=== PATIENT | female | born 1970 | race Caucasian/White ===

== ENCOUNTER 2019-08-14 14:06 | Inpatient (IN) | payer BC, OTHER ==
[2019-08-14] VITALS (14 sets, daily range): BP systolic 73–125; BP diastolic 30–70
[~2019-08-14] VITALS: Ht 162.6 cm; Wt 90.7 kg
[2019-08-14 15:00] LABS: MCV 106.6 fL (80.0-100.0); PLATELET COUNT 116 thou/uL (150-400); RBC 1.27 mil/uL (4.20-5.00); RDW 22.5 % (10.5-14.5); WBC 16.5 thou/uL (4.0-11.0)
[2019-08-14 15:03] LABS: HEMATOCRIT 13.5 % (37.0-47.0); HEMOGLOBIN 4.2 gm/dL (12.0-15.0)
[2019-08-14 15:12] LABS: CALCIUM 8.2 mg/dL (8.5-10.1); CREATININE 2.2 mg/dL (0.6-1.0); POTASSIUM 4.1 mmol/L (3.5-5.1)
[2019-08-14 15:16] LABS: APTT 38.8 Seconds (24.5-32.8); INR 2.4; PROTIME 25.1 Seconds (9.3-11.4)
[2019-08-14 15:23] LABS: ALBUMIN 1.2 g/dL (3.4-5.0); DIRECT BILIRUBIN 6.1 mg/dL (<0.1-0.2); TOTAL BILIRUBIN 8.9 mg/dL (<0.1-1.0); TOTAL PROTEIN 6.1 g/dL (6.4-8.2); TROPONIN-I 0.34 ng/mL (<0.06)
[2019-08-14 15:25] LABS: ABSOLUTE NEUTROPHILS 14.5 thou/uL (1.4-8.2); ANISOCYTOSIS 3+; MACROCYTES 2+; METAMYELOCYTES 1 %; NUCLEATED RBCS 1 /100WBC; PLATELET ESTIMATE SLIGHTLY DECREASED
[2019-08-14 15:26] LABS: POLYCHROMASIA 1+
--- NOTE | 2019-08-14 19:19 | NUR ---
UPDATED DAUGHTER VIA PHONE ON PLAN OF CARE, DAUGHTER GIVEN ICU CONTACT NUMBER.
--- NOTE | 2019-08-14 19:38 | NUR ---
VASCULAR ACCESS CONSULTED FOR CVAD OR PICC LINE. GFR LOW 24 BUT PT UNABLE TO LAY FLAT DUE TO DYSPNEA AND NAUSEA. PT'S LABS,MEDS,HISTURY,ORDER AND CONSENT VERIFIED. DISCUSSED BENEFITS AND RISK OF PICC WITH PT,VERBALIZED UNDERSTANDING. UTE BASILIC WAS WIDELY PATENT WITH USG. PT WAS VERY FIDGIDY DURING INSERTION. TL POWER PICC TRIMMED TO 38CM INSERTED TO 2CM EXTERNAL. STAT CXR ORDERED. PT HAD LARGE EMESIS OF BRIGHT RED BLOOD AND CLOTS AFTER PROCEDURE COMPLETED.
--- NOTE | 2019-08-14 19:48 | NUR ---
CXR CONFIRMED PICC PLACEMENT. RELEASED FOR IMMEDIATE USE PER PROTOCOL TO LEONARDO PICKARD
[2019-08-14 19:56] LABS: HEMOGLOBIN 5.4 gm/dL (12.0-15.0)
[2019-08-14 19:57] LABS: HEMATOCRIT 16.8 % (37.0-47.0)
--- NOTE | 2019-08-14 21:52 | NUR ---
Pt transferred to GI lab for EDG, consent was signed, third unit of PRBC's was initiated with BRANDYN RN. Verbal consent was heard when pt was asked about intubation for procedure, she tearfully agreed. Pt will return on the vebt, RT notified, vent is in the room. Will continue to monitor.
[2019-08-15] VITALS (56 sets, daily range): BP systolic 75–112; BP diastolic 37–61
[2019-08-15 01:22] LABS: HEMATOCRIT 17.5 % (37.0-47.0); HEMOGLOBIN 5.9 gm/dL (12.0-15.0)
--- NOTE | 2019-08-15 06:12 | NUR ---
When pt returned from GI lab, intubated, restless and reaching for the ETT, BUE soft wrist restraints were initiated, Reflesher was notified. Pt was started on propofol, currently infusing at 46 mcg, with good effect, have been able to titrate the levophed down to 15 mcg's, MAP's have been > 60 mmHg throughout the night. Pt is resting comfortably at this time, she is now SR in the 70's to 80's, (she had been tachycardic at the start of the shift, 110's). After a bath, pt was re-weighed and the propofol was adjusted. The bed is in the low/locked position, the siderails are up x 3, and the bed alarm is set. SCD's were not placed due to deep discolored bruising to the right lower extremities, she has 2-3 edema also noted. Her PT/INR are elevated as well. Pt is slowly progressing towards her POC goals.
[2019-08-15 08:49] LABS: MCHC 34.4 g/dL (28.0-37.0); RDW 15.4 % (10.5-14.5); WBC 16.5 thou/uL (4.0-11.0)
--- NOTE | 2019-08-15 08:54 | NUR ---
Assumed care at 0700. Sedation vacation performed at 0830. PT did not follow commands however she attempted to open her eyes to voice and had purposeful movement and was noted to bite down on the ET tube. Propofol was titrated down to 30 mcs with light sedation noted on her RASS score. Levophed gtt was titrated down to 10 mcs to keep MAP above 60. Labs were drawn per Dr. Soto orders. Linda Chamorro called at 0850 and stated she was PT's step-mother. She did not have passcode so RN informed her of HIPAA policy and encouraged her to speak with other family members for an update. High fall risk precautions are in place. RN will continue to monitor.
[2019-08-15 08:59] LABS: HEMATOCRIT 18.6 % (37.0-47.0); HEMOGLOBIN 6.4 gm/dL (12.0-15.0); MCV 93.1 fL (80.0-100.0)
[2019-08-15 09:03] LABS: CALCIUM 7.8 mg/dL (8.5-10.1); CREATININE 2.6 mg/dL (0.6-1.0)
--- NOTE | 2019-08-15 11:29 | NUR ---
Critical lab results called to NEERAJ Tao at 0857 as follows: Hgb 6.4, Hct 18.6, and MCV 93.1. Dr. Lopez was paged at 0901 and again at 0920 to relay critical results. Dr. Lopez returned page at 0929. He verbalized understanding of critical results and 1 unit RBC was ordered. RN also asked provider if PT needed to be on covid-19 precautions as there was no order placed or indications. Provider clarified that PT does not need any isolation precautions at this time. RN verbalized understanding. Will continue to monitor.
--- NOTE | 2019-08-15 13:47 | NUR ---
At 1330 RN spoke with Demarcus Tao on phone. He was given passcode and update on PT condition as he is the only point of contact listed on PT's medical record. Demarcus requested to speak with Dr. Lopez in regards to PT's prognosis. Provider was made aware at 1345. Demarcus stated he would give passcode to his daughter and either him or his daughter will be made point of contact for PT. RN verbalized understanding. Will continue to monitor.
--- NOTE | 2019-08-15 14:17 | NUR ---
Chart reviewed and discussed with the care team. Pt remains in ICU on a vent with pressure support. Hgb 6.4 and getting another unit of blood. Nursing reports mutliple family members calling to get info but needing to clarify a spokesperson. The ER notes that the pt's dtr was updated and given the code. The pt's face sheet information appears to be very old listing a spouse. Nursing spoke with Demarcus Tao and he notes they have been seperated for many years and he will have their dtr call back with her information. The pt reported to ER staff and GI that she lives alone in an apt. She left her boyfriend a while back and has been living on her own and trying to slowly decrease her ethol use. Her primary support is her adult children, Dtr and Son. Pt has a long hx of heavy ethol use and limited medical care. She does not have a pcp or GI physician but has gone to [facility] in the past. She has health insurance in place, believed to be an individual plan. UR notes that our facility is out of network with her insurance plan with no out of network benefits. They are willing to cover her emergency and ICU care but she may need to transfer to an in network hospital once she is more stable and off the vent. In network facilities are [facility], , [place], [facility] and [place]. Will await contact info for the pt's dtr or try to visit with the pt once she is able to be extubated.
[2019-08-15 15:22] LABS: HEMATOCRIT 23.3 % (37.0-47.0); MCH 31.6 pg (26.0-34.0); MCHC 34.3 g/dL (28.0-37.0); MCV 92.1 fL (80.0-100.0); RBC 2.52 mil/uL (4.20-5.00); RDW 15.3 % (10.5-14.5); WBC 16.4 thou/uL (4.0-11.0)
[2019-08-15 15:24] LABS: URINE BILIRUBIN 2+ (Negative); URINE BLOOD 1+ (Negative); URINE CLARITY SL CLOUDY; URINE COLOR YELLOW; URINE GLUCOSE-RANDOM* NEGATIVE (Negative); URINE KETONES TRACE (Negative); URINE LEUKOCYTES-REFLEX NEGATIVE (Negative); URINE NITRITE-REFLEX NEGATIVE (Negative); URINE PROTEIN (DIPSTICK) NEGATIVE (Negative); URINE SPECIFIC GRAVITY 1.025 (1.005-1.035)
[2019-08-15 15:28] LABS: ICTOTEST (BILI CONFIRMATORY) Positive (Negative)
[2019-08-15 15:56] LABS: BACTERIA-REFLEX None Seen /HPF (None Seen); CRYSTALS None Seen /LPF (None Seen); SQUAMOUS 0-3 Few /LPF (0-3); URINE RBC None Seen /HPF (0-2); URINE WBC-REFLEX None Seen /HPF (0-5)
[2019-08-15 16:15] LABS: CALCIUM 7.5 mg/dL (8.5-10.1); CREATININE 2.6 mg/dL (0.6-1.0); MAGNESIUM 1.7 mg/dL (1.8-2.4); POTASSIUM 3.4 mmol/L (3.5-5.1)
[2019-08-16] VITALS (49 sets, daily range): BP systolic 85–132; BP diastolic 42–66
[2019-08-16 00:59] LABS: URINE BILIRUBIN 2+ (Negative); URINE BLOOD TRACE (Negative); URINE CLARITY CLEAR; URINE COLOR YELLOW; URINE GLUCOSE-RANDOM* NEGATIVE (Negative); URINE KETONES NEGATIVE (Negative); URINE LEUKOCYTES 1+ (Negative); URINE NITRITE NEGATIVE (Negative); URINE PROTEIN (DIPSTICK) NEGATIVE (Negative)
[2019-08-16 01:19] LABS: BACTERIA 1-9 Few /HPF (None Seen); CASTS None Seen /LPF (None Seen); MUCUS 0-3 Light strn/LPF (None Seen); SQUAMOUS 4-10 Moderate /LPF (0-3); URINE RBC 0-2 Rare /HPF (0-2); URINE WBC 6-15 Few /HPF (0-5)
[2019-08-16 05:37] LABS: HEMATOCRIT 22.2 % (37.0-47.0); HEMOGLOBIN 7.6 gm/dL (12.0-15.0); MCH 31.8 pg (26.0-34.0); MCHC 34.1 g/dL (28.0-37.0); MCV 93.1 fL (80.0-100.0); RBC 2.39 mil/uL (4.20-5.00); RDW 15.7 % (10.5-14.5); WBC 15.1 thou/uL (4.0-11.0)
[2019-08-16 05:50] LABS: ALBUMIN 1.1 g/dL (3.4-5.0); CALCIUM 7.2 mg/dL (8.5-10.1); CREATININE 2.7 mg/dL (0.6-1.0); MAGNESIUM 1.8 mg/dL (1.8-2.4); POTASSIUM 3.6 mmol/L (3.5-5.1); TOTAL BILIRUBIN 8.2 mg/dL (<0.1-1.0); TOTAL PROTEIN 5.4 g/dL (6.4-8.2); TROPONIN-I 0.55 ng/mL (<0.06)
[2019-08-16 06:00] LABS: INR 1.9; PROTIME 19.5 Seconds (9.3-11.4)
[2019-08-16 07:07] LABS: HEPATITIS B SURFACE AG Negative (Negative); HEPATITIS C VIRUS AB >11.0 (0.0-0.9)
--- NOTE | 2019-08-16 07:44 | HC ---
[facility] [place] [address] CONSULTATION Name: CHESTER CARLOS Room #: formerly [facility]- ADM IN M.R.#: [id number] Admission: 08/14/19 Attend Phys: Colten Lopez MD Discharge: Date of : 66 Report #: [id number] THIS REPORT FOR: cc: [facility] - Family physician unknown [facility] - Family physician unknown Jay Cox MD ~ CC: Aleksey Cormier [facility] unknown Colten Lopez REASON FOR CONSULTATION: The patient is a 48-year-old woman with longstanding history of alcohol abuse and evidence of chronic liver disease with hematemesis and melanotic stools. HISTORY OF PRESENT ILLNESS: This patient reports a longstanding history of alcohol abuse. She drinks mostly hard alcohol and more recently vodka. She will also consume some beer at times. She reports her alcohol consumption for years has been quite heavy and at times she was up to a fifth per day. More recently, she moved out from her boyfriend's apartment as he was also heavily drinking. She got her own apartment and she reports that since the first year she has been trying to reduce her alcohol consumption, but has not been entirely successful. She is also a long-term cigarette smoker as well. In the past 2 weeks, she started feeling bad. She noted that her urine was turning darker in color and she reports that she has been having dark black stools. In the past day or 2, she has had some vomiting. However, last evening, she vomited up some blood. Prior to that, she did have some dry heaves. Today, she was feeling weak and dizzy and felt lots of palpitations and presented to the Emergency Room at [facility]. She was evaluated in the Emergency Room and found to have a hemoglobin of 4.2, a platelet count 116,000. INR of 2.4. Creatinine of 2.2, BUN of 31. Sodium 124, bilirubin of 8.9. Albumin of 1.2. Ammonia 76 and lactic acid of 13.5. She received high volume resuscitation with several liters of fluid in the Emergency Room. She also has received 2 units of red cells and also has at this time receiving 2 units of fresh frozen plasma. She is now in the Intensive Care Unit. She has had several episodes of emesis with red blood and clot. She has not had any melanotic stool since admission to the hospital. She reports that she was ill last December and was at [facility] on an overnight stay. She is very vague on details, but it sounds as if she was to return for an upper endoscopy, but did not follow through. Now she tells me she has never had an upper endoscopy. She reports she has never been known to have hepatitis. She denies use of illicit drugs or shared needles. However, she does have tattoo that was not done by professional or so, nothing is known about that particular needle. She also reports that her had sexual relationships with a woman who did have [facility] [address] [place] [address] CONSULTATION Name: TERRANCECHESTERLore BASURTO Room #: 245-P ADM IN M.R.#: [id number] Admission: 08/14/19 Attend Phys: Colten Lopez MD Discharge: Date of : 66 Report #: [id number] hepatitis C and obviously has had relations with her as well, but she has never been tested or evaluated. PAST MEDICAL HISTORY: She has been a long-term smoker. She has been a little bit more short of breath today. In addition, she reports that her son had symptoms of Covid-19 at least 2 weeks ago. As best I understand he was never tested and she was never tested. She has not had problems until today when she developed some shortness of breath. ALLERGIES: No known drug allergies. FAMILY HISTORY: No anesthesia issues. CURRENT MEDICATIONS: None. SOCIAL HISTORY: Previously and lives with her boyfriend recently, now lives alone. She has been a long-term cigarette smoker and prison use of alcohol. She denies use of illicit drugs. REVIEW OF SYSTEMS: GENERAL: In particular in the past day or so, she has felt dizzy and lightheaded, but there has been no syncope. She has not had any seizures. ENT: She is noted her eyes have been yellow recently. No change in vision. PULMONARY: Some shortness of breath today. Long-term cigarette smoker. CARDIOVASCULAR: Recent palpitations. GASTROINTESTINAL: Hematemesis and melanotic stools noted above. No previous GI evaluation. GENITOURINARY: No dysuria or pyuria. MUSCULOSKELETAL: No muscle pain or back pain which she has had swelling of her lower extremities which has been a little bit worse recently. She has extensive bruising [id number] on the right leg which she attributes to a recent fall. NEUROLOGIC: No seizures or strokes. ENDOCRINE: No diabetes or thyroid disease. HEMATOLOGIC: Bleeding at this time. No previous bleeding issues. PHYSICAL EXAMINATION: VITAL SIGNS: Blood pressure 97/63. She did have some systolic pressures in the 70s earlier today, pulse of 115. GENERAL: The patient is a chronically ill, icteric looking woman. She is in Intensive Care Unit, receiving 2 liters by nasal cannula. She is not in any acute distress. She is awake. She is alert. She is very responsive. She is slightly slow to answer questions and may be very mildly encephalopathic, but not markedly. HEENT: Bilateral scleral icterus. Pupils equal and round. Oropharynx clear. NECK: Supple. CHEST: Clear anteriorly; however, she has a few crackles at both bases. [facility] [address] [place] [address] CONSULTATION Name: CHESTER CARLOS Room #: 245-P ADM IN M.R.#: [id number] Admission: 08/14/19 Attend Phys: Colten Lopez MD Discharge: Date of : 66 Report #: [id number] HEART: Tachycardic S1, S2. Harsh systolic murmur, no prior history of heart disease. ABDOMEN: Markedly distended, firm. Positive bowel sounds consistent with ascites. She reports her abdomen has been increasing in size recently. RECTAL: Not done. EXTREMITIES: Bilateral pedal edema greater on the right than the left; however, she has extensive ecchymosis along the left lower extremity. NEUROLOGIC: She is moving all 4 extremities well. She is awake, alert. SKIN: She is icteric. She has multiple spider nevi across her upper chest. The palms or hands were quite pale consistent with anemia. LABORATORY DATA: Initial hemoglobin was 4.2 after 2 units up to 5.4. White count is 16.5. She has received Rocephin, MCV of 106, platelet count 116,000. INR of 2.4, sodium 124, potassium 4.1, chloride 89, CO2 of 16, BUN of 31, creatinine is 2.2, glucose 70. Lactic acid is 13.5, repeat is pending. Calcium 8.2, bilirubin 8.9, AST of 79, ALT of 22, alkaline phosphatase normal at 87. Ammonia is 76, albumin 1.2. There is evidence of mild basilar atelectasis. ASSESSMENT: 1. Upper gastrointestinal bleeding with hematemesis and melena. 2. Chronic alcohol abuse, physical exam consistent with advanced liver disease, cirrhosis. 3. Kidney injury, possibly acute versus chronic. 4. Metabolic acidosis likely secondary to marked anemia and bouts of hypotension. 5. Thrombocytopenia. 6. Ascites, large. 7. Long-term cigarette smoker. PLAN: 1. Continue resuscitation efforts with packed cells. 2. Fresh frozen plasma which is being done at this time. 3. Octreotide which has been started. 4. Pantoprazole which has been started. 5. Agree with coverage with antibiotics with GI bleeding and ascites and end-stage liver disease. 6. Discontinuation of alcohol. 7. Upper endoscopy. We will plan to do urgently tonight since she has had several episodes of hematemesis here in the hospital. <ELECTRONICALLY SIGNED> By: Jay Cox MD 08/16/19 0744 17 2106 Jay Cox MD /nt
--- NOTE | 2019-08-16 07:44 | P ---
[facility] [place] [address] [place] [address] PROCEDURE REPORT Name: CHESTER CARLOS Room #: 245-P ADM IN M.R.#: [id number] Admission: 08/14/19 Attend Phys: Colten Lopez MD Discharge: Date of : 66 Report #: [id number] THIS REPORT FOR: cc: FAM - Family physician unknown FAM - Family physician unknown Jay Cox MD ~ CC: Aleksey Cormier [facility] unknown Colten Lopez INPATIENT UPPER ENDOSCOPY REPORT BRIEF HISTORY: The patient is a 48-year-old woman who presented with upper GI bleeding and history of chronic liver disease consistent with cirrhosis. She has had melena and multiple episodes of hematemesis since arrived to the Emergency Room with hemoglobin of 4.2 on presentation. PREOPERATIVE DIAGNOSIS: Upper gastrointestinal bleeding and chronic liver disease. POSTOPERATIVE DIAGNOSES: 1. Multiple superficial ulcers, distal esophagus, questionably related to vomiting. 2. Nonbleeding visible vessel on ulcer base at the gastroesophageal junction. 3. Esophageal varices, nonbleeding. 4. Diffuse gastritis, chronic appearing without evidence of active bleeding. MEDICATIONS: Intubation, general anesthesia. SPECIMEN: None. ESTIMATED BLOOD LOSS: None related to procedure. PROCEDURE: EGD with clip placement on nonbleeding visible vessel. FINDINGS: Prior to intubation and anesthesia, procedure of EGD was discussed with the patient and potential interventions were discussed. She indicates she understands and desires to proceed. DESCRIPTION OF PROCEDURE: The patient was taken to the OR and induced with anesthesia and intubated. Subsequently, the Olympus video endoscope was inserted in the cervical esophagus under direct vision without difficulty. As the scope was advanced, bloody liquid was seen in the distal esophagus. We then spent a good deal of time suctioning blood and liquid out of the esophagus and then entered in the stomach. There was a large pool of bloody liquid in the cardia and body of the stomach. We vigorously suctioned and did some irrigation and lavaging of the stomach. We eventually were able to remove almost all the [facility] [address] [place] [address] PROCEDURE REPORT Name: CHESTER CARLOS Room #: 245-P ADM IN M.R.#: [id number] Admission: 08/14/19 Attend Phys: Colten Lopez MD Discharge: Date of : 66 Report #: [id number] bloody liquid. Amazingly, there was very little clot and it was thin liquid, which was suctioned with fairly easy suctioning of the material from the stomach. Once a large pool had been removed, careful endoscopic examination was completed. We advanced the scope into the duodenum and the duodenal bulb and postbulbar duodenum were inspected. Not surprisingly, they were coated with a thin layer of blood and when washed away, the mucosa was noted to be normal. There was no evidence of ulcers or bleeding in the duodenum. The distal stomach was examined and it was well seen. There was a pattern of a chronic gastritis with some mucosal irregularity, but the mucosa was intact. In the distal body of the stomach, it actually looked like there was scarring in the stomach, but again the mucosa was intact and no ulcers or bleeding was seen. The fundus and cardia were examined on end view as well as retroflexed views. Again, the large pool of bloody material was suctioned away. There was coating in mucosa with blood, but active bleeding was not seen and no raised vessels were seen. I did not see definite gastric varices. No mass lesions were seen on retroflexion. The scope was then withdrawn back in the esophagus. Again, the esophagus was cleared. There was no evidence of active bleeding. Examination of the esophagus revealed that there were definite varices in the range of about 2+. These were in the mid to proximal and distal segment of the esophagus. Distally, especially towards the GE junction, it was difficult to see significant varices, although I believe they are present. She had superficial ulceration covering much of the mucosa in the distal esophagus. She gives report of dry heaves and retching prior to the hematemesis. Right at the GE junction, there was a fairly large, very superficial flat ulcer. In the center, this was a raised area, which I believe is a nonbleeding exposed vessel. We examined this area very carefully. It was literally at the GE junction at 39 cm. Although I suspect varices are present, a large varix was not seen at this point and it was unclear whether or not we could suction this area into a chamber to place a band. The concern was if we could only partially suctioned this area into the banding chamber, we would not be able to completely place a band on the lesion and potentially induce bleeding. Therefore, we opted to place a clip and this was done with very good results. The area of the vessel was entrapped in the clip. There was no bleeding. Once it was felt there was satisfactory clip placement and without bleeding, the scope was withdrawn and the patient tolerated the procedure well. DISPOSITION: The patient with GI bleeding. She has extensive ulcers in the distal esophagus, I suspect from vomiting. She clearly does have varices, but she is significantly anemic at this point in time. I suspect with continued fluid hydration and blood products, the varices will become more prominent. She will continue octreotide at this point in time. Also, continue pantoprazole and ICU support. If she remains stable without further evidence of bleeding, I would suggest the laying banding for a couple of weeks to allow the ulcers to [facility] [address] [place] [address] PROCEDURE REPORT Name: CHESTER CARLOS Room #: 245-P ADM IN M.R.#: [id number] Admission: 08/14/19 Attend Phys: Colten Lopez MD Discharge: Date of : 66 Report #: [id number] heal, so that the bands could be placed on intact mucosa. However, if she has more bleeding, intervention may be required sooner. <ELECTRONICALLY SIGNED> By: Jay Cox MD 08/16/19 0744 [id number] [id number] Jay Cox MD /nt
--- NOTE | 2019-08-16 08:18 | EKG ---
[facility] [place] [address] [place] [address] ELECTROCARDIOGRAM REPORT Name: CHESTER CARLOS Room #: 245- ADM IN M.R.#: [id number] Admission: 08/14/19 Attend Phys: Colten Lopez MD Discharge: Date of : 66 Report #: [id number] THIS REPORT FOR: cc: FAM - Family physician unknown FAM - Family physician unknown Jeison Alcaraz MD [facility] THIS REPORT FOR: //name// [facility] Test Date: 2019-08-16 Test Time: 07:27:59 Pat Name: CHESTER CARLOS Department: Room: [facility] Gender: F Construction Scheduler: MARCO A : 1970 Requested By: Colten Lopez Order Number: [id number] MD: Jeison Alcaraz Measurements Intervals [place] Rate: 84 P: -7 [place]: 144 QRS: 29 QRSD: 79 T: 39 QT: 395 QTc: 467 Interpretive Statements Sinus rhythm Low voltage, precordial leads Compared to ECG 08/14/2019 14:40:24 Low QRS voltage now present Sinus tachycardia no longer present Electronically Signed On 08-16-2019 8:17:29 CDT by Jeison Alcaraz [email or web address] <ELECTRONICALLY SIGNED> By: Jeison Alcaraz MD, [facility] 08/16/19816 6 6 Jeison Alcaraz MD, [facility] /EPI
[2019-08-16 09:57] LABS: BE(vivo) -4.1 mmol/L (-2 to +3); PCO2 27.5 mmHg (35.0-45.0); PO2 100.5 mmHg (80.0-100.0); pH 7.458 (7.360-7.450)
--- NOTE | 2019-08-16 10:50 | 2DMMODE ---
[facility] [address] [place] [address] 2 D/M-MODE ECHOCARDIOGRAM Name: CHESTER CARLOS Room #: 245-P ADM IN M.R.#: [id number] Admission: 08/14/19 Attend Phys: Colten Lopez MD Discharge: Date of : 66 Report #: [id number] THIS REPORT FOR: cc: FAM - Family physician unknown FAM - Family physician unknown Edmund Singh MD ~ APPROVED REPORT Study performed: 08/16/2019 10:05:30 EXAM: Comprehensive 2D, Doppler, and color-flow Echocardiogram Patient Location: ICU Room #: [facility] Status: routine BSA: 1.99 HR: 87 bpm BP: 92/49 mmHg Rhythm: NSR Other Information Study Quality: Adequate/patient on vent. Indications Elevated troponin. Hx: ETOH and Tob abuse. 2D Dimensions RVDd: 40.64 mm IVSd: 10.96 (7-11mm) LVOT Diam: 20.27 (18-24mm) LVDd: 51.02 mm PWd: 11.35 (7-11mm) Ascending Ao: 36.42 (22-36mm) LVDs: 30.93 (25-40mm) Aortic Root: 32.77 mm Volumes Left Atrial Volume (Systole) Single Plane 4CH: 55.54 mL Single Plane 2CH: 81.23 mL LA ESV Index: 36.00 mL/m2 Aortic Valve AoV Peak Jason.: 2.43 m/s AO Peak Gr.: 23.63 mmHg LVOT Max P.10 mmHg AO Mean Gr.: 13.91 mmHg AO V2 Mean: 1.82 m/s LVOT Max V: 1.94 m/s [facility] [address] [place] [address] 2 D/M-MODE ECHOCARDIOGRAM Name: TERRANCECHESTERLore BASURTO Room #: 245-P [facility] IN .R.#: [id number] Admission: 08/14/19 Attend Phys: Colten Lopez MD Discharge: Date of : 66 Report #: [id number] AO V2 VTI: 47.76 cm LIYA Vmax: 2.58 cm2 Mitral Valve E/A Ratio: 1.4 MV Decel. Time: 161.74 ms MV E Max Jason.: 1.13 m/s MV A Jason.: 0.80 m/s MV PHT: 46.91 ms IVRT: 65.74 ms Pulmonary Valve PV Peak Jason.: 1.44 m/s PV Peak Gr.: 8.29 mmHg Pulmonary Vein P Vein S: 0.90 m/s P Vein A: 0.35 m/s P Vein D: 0.63 m/s P Vein A Dur.: 83.0 msec P Vein S/D Ratio: 1.43 Tricuspid Valve TR Peak Jason.: 2.12 m/s RAP Estimate: 10.00 mmHg TR Peak Gr.: 18.00 mmHg PA Pressure: 28.00 mmHg Left Ventricle The left ventricle is normal size. There is normal LV segmental wall motion. There is normal left ventricular wall thickness. Left ventricular systolic function is hyperdynamic. LVEF is 65-70%. The left ventricular diastolic function is normal. Right Ventricle The right ventricle is normal size. The right ventricular systolic function is normal. Atria Left atrium is at the upper limits of normal. The right atrium size is normal. Aortic Valve The aortic valve is normal in structure. No aortic regurgitation is present. There is no aortic valvular stenosis. Mitral Valve The mitral valve is normal in structure. Mild mitral regurgitation. No evidence of mitral valve stenosis. [facility] [address] [place] [address] 2 D/M-MODE ECHOCARDIOGRAM Name: CHESTER CARLOS Room #: 245-P [facility] IN .R.#: [id number] Admission: 08/14/19 Attend Phys: Colten Lopez MD Discharge: Date of : 66 Report #: [id number] Tricuspid Valve The tricuspid valve is normal in structure. Mild tricuspid regurgitation. Estimated PAP is 25mmHg. Pulmonic Valve The pulmonary valve is normal in structure. There is no pulmonic valvular regurgitation. Great Vessels The aortic root is normal in size. The ascending aorta is normal in size. IVC is normal in size and collapses <50% with inspiration. Pericardium There is no pericardial effusion. Left pleural effusion noted. <Conclusion> The left ventricle is normal size. Left ventricular systolic function is hyperdynamic. The right ventricle is normal size. Left atrium is at the upper limits of normal. The aortic valve is normal in structure. Mild mitral regurgitation. Mild tricuspid regurgitation. Estimated PAP is 25mmHg. <ELECTRONICALLY SIGNED> By: Edmund Singh MD 08/16/19 1049 1049 1049 Edmund Singh MD /INF
[2019-08-16 11:15] LABS: URINE CREATININE-RANDOM* 83.4 mg/dL; URINE SODIUM-RANDOM* <5 mmol/L
--- NOTE | 2019-08-16 11:32 | NUR ---
discussed during los, she remains on vent and in the icu. no able to transfer today to another hospital that is in network with her insurance like ( [facility], , [place], [facility], or [facility]). will cont following as needed for dc needs.
--- NOTE | 2019-08-16 21:12 | NUR ---
SPOKE WITH DAUGHTER JENNIFER CARLOS AND GAVE UPDATE ON PATIENT. DAUGHTER WOULD LIKE TO SPEAK TO DR. KATERINA MOORE ON RESPIRATORY STATUS. PROPOFOL WEANED OFF AT 2109. PATIENT RESTING COMFORTABLY, NO SIGN OF RESPIRATORY DISTRESS.
[2019-08-17] VITALS (24 sets, daily range): BP systolic 107–134; BP diastolic 45–71
[2019-08-17 04:12] LABS: HEMATOCRIT 21.2 % (37.0-47.0); HEMOGLOBIN 7.1 gm/dL (12.0-15.0); MCH 31.9 pg (26.0-34.0); MCHC 33.6 g/dL (28.0-37.0); MCV 95.1 fL (80.0-100.0); RBC 2.23 mil/uL (4.20-5.00); RDW 16.1 % (10.5-14.5); WBC 11.7 thou/uL (4.0-11.0)
[2019-08-17 04:30] LABS: CALCIUM 6.9 mg/dL (8.5-10.1); CREATININE 2.3 mg/dL (0.6-1.0); MAGNESIUM 1.8 mg/dL (1.8-2.4); POTASSIUM 3.9 mmol/L (3.5-5.1); TOTAL BILIRUBIN 9.3 mg/dL (<0.1-1.0); TOTAL PROTEIN 5.3 g/dL (6.4-8.2); TROPONIN-I 0.27 ng/mL (<0.06)
[2019-08-17 04:41] LABS: INR 1.9; PROTIME 19.5 Seconds (9.3-11.4)
--- NOTE | 2019-08-17 07:34 | NUR ---
ASSUMED CARE OF PATIENT AT 1899, PATIENT ON LIGHT SEDATION, ALERT AND FOLLOWS COMMANDS. PROPOFOL WEANED OFF AT 2109, VERSED CURRENTLY KEEPING PATIENT COMFORTABLE. MAIN IVF DISCONTINUED PER DR. DANIELLE. HE PATIENT AND GREATER THAN 30ML/HR. RECTAL TUBE IN PLACE. CURRENTLY 30% FIO2 ON VENTILATOR. PLAN TO COMPLETE PARACENTESIS TODAY, CONSENT OBTAINED FROM DAUGHTER. NO SIGN OF ACUTE DISTRESS NOTED AT THIS TIME. WILL CONTINUE TO MONITOR.
[2019-08-17 08:59] LABS: BE(vivo) -5.5 mmol/L (-2 to +3); HCO3 18.6 mmol/L (22.0-26.0); PCO2 30.6 mmHg (35.0-45.0); PO2 93.9 mmHg (80.0-100.0); pH 7.402 (7.360-7.450); sO2 97.3 % (92.0-98.0)
--- NOTE | 2019-08-17 10:58 | NUR ---
chart review. pt remains intubated, possible going for paracentesis today rt her ascites. not medically stable to transfer to another hospital. when stable to transfer to a in network hospital choice through her insurance are ( [facility], [facility], [facility], [facility] or [facility]). will cont following as need for dc needs.
--- NOTE | 2019-08-17 11:08 | NUR ---
CPAP TRAIL COMPLETED. SEE POST ABG RESULTS. PT TOLERATED WELL. PLAN FOR PARACENTESIS THIS AFTERNOON. ULTRASOUND OF LOWER EXTREMITY COMPLETE. DR. MENENDEZ AND DR. CRUZ HAVE ROUNDED ON THE PATIENT. SPOKE WITH DR. ISAACS THIS AM. TELEPHONE ORDER OF Q6HR ALBUMIN. PT FOLLOWS COMMANDS WHEN SEDATION TURNED DOWN.
--- NOTE | 2019-08-17 12:26 | EKG ---
[facility] [place] [address] [place] [address] ELECTROCARDIOGRAM REPORT Name: CHESTER CARLOS Room #: 245-P ADM IN M.R.#: [id number] Admission: 08/14/19 Attend Phys: Colten Lopez MD Discharge: Date of : 66 Report #: [id number] THIS REPORT FOR: cc: FAM - Family physician unknown FAM - Family physician unknown Jeison Alcaraz MD [facility] THIS REPORT FOR: //name// [facility] ED Test Date: 2019-08-14 Test Time: 14:40:24 Pat Name: CHESTER CARLOS Department: Room: Gender: F Supervisor [facility] 1970 Requested By: Alan Hernandez Order Number: [id number] MD: Jeison Alcaraz Measurements Intervals [place] Rate: 118 P: 46 [place]: 140 QRS: 19 QRSD: 83 T: 21 QT: 351 QTc: 492 Interpretive Statements Sinus tachycardia Nonspecific ST segment abnormality Borderline prolonged QT interval Baseline wander in lead(s) V3 No previous ECG available for comparison Electronically Signed On 08-14-2019 16:29:18 CDT by Jeison Alcaraz [email or web address] <ELECTRONICALLY SIGNED> By: Jeison Alcaraz MD, FAC 08/14/19 1629 1440 1440 Jeison Alcaraz MD, [facility] /EPI
--- NOTE | 2019-08-17 12:38 | NUR ---
UPDATED DAUGHTER JENNIFER ON PATIENT STATUS.
--- NOTE | 2019-08-17 14:15 | NUR ---
IR DOCTOR AT BEDSIDE PERFORMING PARACENTESIS. DR. KATERINA ACOSTA, WOULD LIKE TO KEEP PATIENT ON VENT ONE MORE DAY AND CONTINUE WITH WEENING/CPAP TRIAL TOMORROW.
[2019-08-17 15:14] LABS: COLOR YELLOW; SOURCE ABDOMINAL; TOTAL VOLUME 45 mL
[2019-08-17 15:15] LABS: CLARITY SLIGHTLY CLOUDY
[2019-08-17 15:16] LABS: BF NUCLEATED CELLS 36; BF RBC 140
[2019-08-17 15:55] LABS: BF MACROPHAGE 31; BF NEUTROPHILS 10
[2019-08-18] VITALS (30 sets, daily range): BP systolic 82–117; BP diastolic 38–62
[2019-08-18 04:29] LABS: APTT 45.7 Seconds (24.5-32.8); PROTIME 20.7 Seconds (9.3-11.4)
[2019-08-18 04:36] LABS: ALBUMIN 1.8 g/dL (3.4-5.0); CALCIUM 7.4 mg/dL (8.5-10.1); CREATININE 1.8 mg/dL (0.6-1.0); MAGNESIUM 1.9 mg/dL (1.8-2.4); POTASSIUM 3.6 mmol/L (3.5-5.1); TOTAL PROTEIN 5.2 g/dL (6.4-8.2)
[2019-08-18 04:42] LABS: TOTAL BILIRUBIN 13.3 mg/dL (<0.1-1.0)
[2019-08-18 06:10] LABS: WBC 7.7 thou/uL (4.0-11.0)
[2019-08-18 06:12] LABS: HEMOGLOBIN 6.6 gm/dL (12.0-15.0); MCH 33.1 pg (26.0-34.0); MCHC 34.3 g/dL (28.0-37.0); MCV 96.5 fL (80.0-100.0); RBC 1.98 mil/uL (4.20-5.00); RDW 17.4 % (10.5-14.5)
[2019-08-18 06:20] LABS: HEMATOCRIT 19.1 % (37.0-47.0)
[2019-08-18 06:38] LABS: SOURCE ABDOMINAL
--- NOTE | 2019-08-18 07:28 | NUR ---
SEDATION VACATION PERFORMED AT 1930. VERSED TURNED OFF FOR APPROXIMATELY 15 MINS. PATIENT ABLE TO FOLLOW COMMANDS. MOVE EXTREMITIES AND SQUEEZE HANDS. NO APPARENT PAIN. HR IN THE 70S DURING SEDATION VACATION, RESPIRATION IN THE 20S. NO SIGNS OF DISTRESS DURING THIS PERIOD. END OF SHIFT REPORT: SEDATED ON VERSED. VITAL SIGNS STABLE. AFEBRILE. ADEQUATE URINE OUTPUT. CRITICAL HEMATOCRIT THIS AM. ORDERS RECIEVED FOR BLOOD TRANFUSION. WILL CONTINUE TO MONITOR.
[2019-08-18 14:07] LABS: BODY FLUID ALBUMIN < 0.2 g/dL (Not Estab.); BODY FLUID AMYLASE 24 U/L (()); BODY FLUID GLUCOSE 103 mg/dL (()); BODY FLUID LDH 32 IU/L (()); BODY FLUID PROTEIN 0.7 g/dL (())
[2019-08-18 20:09] LABS: HEMATOCRIT 20.8 % (37.0-47.0); HEMOGLOBIN 7.2 gm/dL (12.0-15.0)
[2019-08-19] VITALS (42 sets, daily range): BP systolic 82–112; BP diastolic 45–63
[2019-08-19 06:17] LABS: HEMOGLOBIN 7.2 gm/dL (12.0-15.0); MCH 32.9 pg (26.0-34.0); MCHC 34.5 g/dL (28.0-37.0); MCV 95.4 fL (80.0-100.0); RBC 2.2 mil/uL (4.20-5.00); RDW 18.7 % (10.5-14.5)
[2019-08-19 06:31] LABS: INR 2.1; PROTIME 21.1 Seconds (9.3-11.4)
--- NOTE | 2019-08-19 06:32 | NUR ---
SLEPT THROUGHOUT SHIFT. WILL OPEN EYES SLIGHTLY TO NAME AND PAINFUL STIMULI, SQUEEZES HAND AND SOMETIMES NODS HEAD. TURNED EVERY 2 HOURS FOR SKIN CARE AND COMFORT. LEFOPHED TURNED UP TO MAINTAIN MAP >60. APPEARS COMFORTABLE. NOT PROGRESSING TOWARDS DISCHARGE GOALS AT THIS TIME. TOLERATED VENT, CONTINUE TO ASSES CLOSELY.
[2019-08-19 06:41] LABS: ALBUMIN 2.9 g/dL (3.4-5.0); CALCIUM 8.7 mg/dL (8.5-10.1); CREATININE 1.6 mg/dL (0.6-1.0); POTASSIUM 3.4 mmol/L (3.5-5.1); TOTAL BILIRUBIN 18.7 mg/dL (<0.1-1.0)
--- NOTE | 2019-08-19 16:12 | NUR ---
PT REMAINS ON THE VENT. JAUNDICE IN APPEARANCE HISTORY OF CIRRHOSIS. EYES OPEN LOCALIZE TO PAIN. LUNGS ARE WHEEZES TO DIMINISHED. SUCTIONED THICK CLEAR FLUID OUT OF ET TUBE. ABDOMEN IS ROUND BOWEL SOUNDS HYPOACTIVE. HE TO DD. ORANGE URINE, AND FECAL MANANGEMENT SYSTEM IN PLACE TOO. SCDS ON BILATERAL. SCAB ON RIGHT KNEE AND SKIN DISCOLORATION NOTED ON RIGHT LOWER LEG. SCDS ON BILAERAL. 3 PLUS EDEMA NOTED. REMAINS IN RESTRAINTS. WILL CONTINUE TO PROGRESS TOWARDS GOALS AT THIS TIME.
[2019-08-20] VITALS (37 sets, daily range): BP systolic 85–111; BP diastolic 47–67
--- NOTE | 2019-08-20 04:15 | NUR ---
WILL CONTINUE TO MONITOR
[2019-08-20 06:46] LABS: HEMATOCRIT 20.1 % (37.0-47.0); MCH 33.3 pg (26.0-34.0); MCHC 34.7 g/dL (28.0-37.0); MCV 95.9 fL (80.0-100.0); RBC 2.09 mil/uL (4.20-5.00); RDW 20.4 % (10.5-14.5); WBC 9.4 thou/uL (4.0-11.0)
[2019-08-20 07:07] LABS: PROTIME 18.8 Seconds (9.3-11.4)
[2019-08-20 07:19] LABS: INR 1.8
[2019-08-20 07:20] LABS: ALBUMIN 3.4 g/dL (3.4-5.0); CALCIUM 8.9 mg/dL (8.5-10.1); CREATININE 1.3 mg/dL (0.6-1.0); MAGNESIUM 2.2 mg/dL (1.8-2.4); POTASSIUM 3.7 mmol/L (3.5-5.1); TOTAL PROTEIN 6.3 g/dL (6.4-8.2)
--- NOTE | 2019-08-20 09:14 | NUR ---
Assumed care at 0700. PT appears to be sleeping. Versed gtt was shut off at [address] Dockery's request. PT does not follow commands or try and open her eyes. See reassessment for further details. Fall precautions in place. RN will continue to monitor.
--- NOTE | 2019-08-20 12:38 | NUR ---
Dr. Cox on unit to see PT. Provider told RN to clamp the PT's OG tube and check residuals. If PT tolerates OG tube being clamped then tube feeds can be initiated. Dr. Cox asked RN to update Dr. Soto because he ordered TPN for this PT. RN spoke with Dr. Soto at 1224. He verbalized understanding and asked RN to notify Dr. Lopez that TPN will be discontinued and tube feedings will be started. RN verbalized understanding and paged Dr. Lopez. RN will continue to monitor.
--- NOTE | 2019-08-20 13:13 | NUR ---
discussed during los, pt remains intubated on vent and not medically stable for transfer to a in network [facility] ( [facility], [facility]). will cont following as needed for dc needs.
--- NOTE | 2019-08-20 14:27 | NUR ---
RN spoke with Joselyn, PT's daughter and designated contact, via phone. RN provided daughter with an update on PT's condition and informed her that there has not been much change since yesterday. PT is unable to be weaned from the vent at this time, she is still on levophed to support her blood pressure, and we will begin nutrition via tube feedings if PT can tolerate her OG being clamped. Daughter verbalized understanding and thanked RN for update. RN will continue to monitor.
[2019-08-21] VITALS (73 sets, daily range): BP systolic 79–119; BP diastolic 38–72
[2019-08-21 03:42] LABS: BE(vivo) -3.1 mmol/L (-2 to +3); HCO3 20.1 mmol/L (22.0-26.0); PCO2 28.5 mmHg (35.0-45.0); PO2 72.7 mmHg (80.0-100.0); pH 7.467 (7.360-7.450); sO2 95.7 % (92.0-98.0)
[2019-08-21 06:24] LABS: INR 1.9; PROTIME 19.9 Seconds (9.3-11.4)
[2019-08-21 06:32] LABS: ALBUMIN 2.8 g/dL (3.4-5.0); CALCIUM 8.6 mg/dL (8.5-10.1); CREATININE 1.3 mg/dL (0.6-1.0); MAGNESIUM 2.1 mg/dL (1.8-2.4); PHOSPHORUS 2.2 mg/dL (2.5-4.9); POTASSIUM 3.6 mmol/L (3.5-5.1)
[2019-08-21 07:02] LABS: HEMOGLOBIN 6.9 gm/dL (12.0-15.0); RBC 2.11 mil/uL (4.20-5.00)
[2019-08-21 07:04] LABS: HEMATOCRIT 20.3 % (37.0-47.0); MCH 32.7 pg (26.0-34.0); MCHC 33.9 g/dL (28.0-37.0); MCV 96.4 fL (80.0-100.0); PLATELET COUNT 88 thou/uL (150-400); RDW 20.3 % (10.5-14.5); WBC 11.4 thou/uL (4.0-11.0)
[2019-08-21 08:54] LABS: ABSOLUTE NEUTROPHILS 8.4 thou/uL (1.4-8.2)
[2019-08-21 08:56] LABS: ANISOCYTOSIS 1+; HYPOCHROMASIA 1+; PLATELET ESTIMATE SLIGHTLY DECREASED; POIKILOCYTOSIS 1+; POLYCHROMASIA SLIGHT; TOXIC GRANULATION 1+
--- NOTE | 2019-08-21 10:45 | NUR ---
Nutrition: If pt continues to tolerate NG clamping, agree with D/C of TPN and transition to enteral feeds of Vital AF to reach goal of 50 mL/hr. Defer fluid needs to physician.
[2019-08-21 12:46] LABS: BE(vivo) -2.4 mmol/L (-2 to +3); HCO3 21.8 mmol/L (22.0-26.0); PCO2 34.5 mmHg (35.0-45.0); PO2 130.2 mmHg (80.0-100.0); pH 7.419 (7.360-7.450); sO2 98.7 % (92.0-98.0)
--- NOTE | 2019-08-21 13:12 | NUR ---
OGT NOTED TO BE DISPLACED ON FIRST ASSESSMENT. REMOVED AND NEW OGT PLACED AND SECURED AT 59CM. KUB CONFIRMED PLACEMENT. CLAMPED UNTIL 1300. 200 ML OF GREEN BILE LIKE FLUID NOTED WHEN PLACED TO SUCTION. TPN CURRENTLY INFUSING AT 40ML/HR. WILL STOP AND BEGIN TUBE FEEDS PER FENCE REPAIRMAN RECOMMENDATION. VITAL AF AT GOAL OF 50/HR.
[2019-08-22] VITALS (45 sets, daily range): BP systolic 85–113; BP diastolic 44–65
[2019-08-22 05:01] LABS: BE(vivo) -2.3 mmol/L (-2 to +3); HCO3 21.1 mmol/L (22.0-26.0); PCO2 31.2 mmHg (35.0-45.0); PO2 118.1 mmHg (80.0-100.0); pH 7.448 (7.360-7.450); sO2 98.5 % (92.0-98.0)
--- NOTE | 2019-08-22 05:40 | NUR ---
ASSUMED PT CARE AT 1900. PT IS INTUBATED BUT FOLLOWS COMMAND AND IS AROUSABLE. PT IS STABLE. LEVOPHED RESTARTED DUE TO LOW BLOOD PRESSURE. VITAL SIGNS STABLE THROUGHOUT THE NIGHT. RESTRAINTS IN PLACE. ASSESSMENT COMPLETED AND DOCUMENTED. SCHDEDULED MEDS ADMINISTERED TO PT. PT IS STABLE. NO EVENTS OVERNIGHT. CONTINUE TO MONITOR PATIENT. NO NEEDS AT THIS TIME.
[2019-08-22 05:44] LABS: HEMOGLOBIN 7.3 gm/dL (12.0-15.0); MCH 32.5 pg (26.0-34.0); MCHC 33.4 g/dL (28.0-37.0); MCV 97.4 fL (80.0-100.0); PLATELET COUNT 91 thou/uL (150-400); RBC 2.25 mil/uL (4.20-5.00); WBC 12.2 thou/uL (4.0-11.0)
[2019-08-22 06:11] LABS: ALBUMIN 2.4 g/dL (3.4-5.0); CALCIUM 8.2 mg/dL (8.5-10.1); CREATININE 1.1 mg/dL (0.6-1.0); PHOSPHORUS 2.2 mg/dL (2.5-4.9); POTASSIUM 3.6 mmol/L (3.5-5.1); TOTAL BILIRUBIN 19.2 mg/dL (<0.1-1.0); TOTAL PROTEIN 5.9 g/dL (6.4-8.2)
--- NOTE | 2019-08-22 07:11 | HC ---
[facility] [place] [address] [place] [address] CONSULTATION Name: CHESTER CARLOS Room #: 249-P ADM IN M.R.#: [id number] Admission: 08/14/19 Attend Phys: Colten Lopez MD Discharge: Date of : 66 Report #: [id number] THIS REPORT FOR: cc: [facility] - Family physician unknown FAM - Family physician unknown Rani Soto MD ~ CC: Aleksey RAMIREZ unknown Colten Lopez REASON FOR THE CONSULTATION: Acute kidney injury. REASON FOR THE PRESENTATION: Abdominal pain. HISTORY OF PRESENT ILLNESS: This is obtained from the medical chart. The patient is currently intubated. She is not able to provide me with any history. Apparently, the patient is an alcohol abuser who presented to the hospital reporting abdominal pain. She also reported to black tarry stool and lower extremity swelling. She related to the Emergency Room that her son was exposed to COVID. She was not really sure about his status, if positive or not, but he improved. The patient was found to have a hemoglobin of 4.2 on presentation. Creatinine was elevated at 2.2 and has gone up to 2.7. She was extremely hypotensive in the last few days. She had seen Gastroenterology and EGD was done. This was consistent with nonbleeding ulceration of the distal esophagus. She also had evidence of esophageal varices. Currently, the patient is intubated, sedated, and not able to provide me with any details. REVIEW OF SYSTEMS: Unobtainable given the patient's current mentation and intubation status. ALLERGIES: No known drug allergies. FAMILY HISTORY: Unobtainable given the patient's current mental status. SOCIAL HISTORY: Unobtainable given the patient's current mental status. PAST MEDICAL AND SURGICAL HISTORY: I am not able to verify anything as the patient is currently intubated and not able to provide me with the history. PHYSICAL EXAMINATION: VITAL SIGNS: Temperature 36.8, blood pressure 113/51. HEAD AND NECK: No jugular venous distention. ET tube in place. CHEST: Decreased air entry bilaterally with no crackles. CARDIOVASCULAR: No rub detected. ABDOMEN: Distended with ascites. EXTREMITIES: Lower extremities: Extensive edema. Upper extremities: Extensive edema. [facility] [address] [place] [address] CONSULTATION Name: CHESTER CARLOS Room #: 249-P ADM IN .R.#: [id number] Admission: 08/14/19 Attend Phys: Colten Lopez MD Discharge: Date of : 66 Report #: [id number] LABORATORY VALUES: Reviewed. Sodium is 126, BUN is 45, creatinine is 2.3. Total bilirubin is 9.3, AST is 77. Albumin is 1.0. IMAGING: Chest x-ray with no acute process. Abdominal ultrasound with cirrhosis of the liver. ASSESSMENT, IMPRESSION, PLAN: 1. Acute kidney injury. 2. Alcoholic liver disease. 3. Respiratory failure. 4. Gastrointestinal bleeding. 5. Hyponatremia. 6. Hyperbilirubinemia. 7. Esophageal varices. 8. Esophageal ulcers. The patient's differential diagnosis for her acute kidney injury could be hepatorenal syndrome versus hypotension and prerenal causes. Her initial urine sodium was extremely low. She was extremely anemic with what seems to be GI bleeding contributing to her hypotension. This seems to have stabilized. In fact, her creatinine is slightly down. 1. Continue with the octreotide for now. 2. Added midodrine yesterday, continue with the Levophed. 3. Discontinue IV fluid. She received few days' worth of IV fluid and she is now currently fluid overloaded. 4. Add albumin. 5. Very high mortality. We will continue to follow. <ELECTRONICALLY SIGNED> By: Rani Soto MD 08/22/19 0711 0725 0801 Rani Soto MD /nt
[2019-08-22 08:16] LABS: ABSOLUTE NEUTROPHILS 9.6 thou/uL (1.4-8.2); ATYPICAL LYMPHS 1 %; MYELOCYTES 1 %
[2019-08-22 08:17] LABS: ANISOCYTOSIS 1+; HYPOCHROMASIA SLIGHT; PLATELET ESTIMATE SLIGHTLY DECREASED; POIKILOCYTOSIS 1+; POLYCHROMASIA SLIGHT
[2019-08-22 08:18] LABS: BURR CELLS OCCASIONAL; TEARDROPS OCCASIONAL
[2019-08-22 08:24] LABS: TOXIC GRANULATION 1+
[2019-08-22 13:49] LABS: BE(vivo) -1.7 mmol/L (-2 to +3); HCO3 22.3 mmol/L (22.0-26.0); PO2 87.3 mmHg (80.0-100.0); pH 7.423 (7.360-7.450); sO2 96.9 % (92.0-98.0)
--- NOTE | 2019-08-22 14:07 | PATH ---
[facility] [address] [place] [address] PATHOLOGY RPT PROCEDURE Name: CHESTER CARLOS Room #: 249-P ADM IN M.R.#: [id number] Admission: 08/14/19 Date of : 66 Discharge: Report #: [id number] Path Case #: [id number] Note [facility] Accession Number: [id number] TESTS RESULT FLAG UNITS REF RANGE LAB Clinician Provided Cytology Information No. of containers..01 Other (Miscellaneous) Source: 01 ABDOMINAL FLUID DIAGNOSIS: 02 ABDOMINAL FLUID NEGATIVE FOR MALIGNANT EPITHELIAL CELLS. REACTIVE MESOTHELIAL CELLS ARE PRESENT. SCANT CELLULARITY. THIS INTERPRETATION INCLUDES EVALUATION OF A CELL BLOCK. Pathologist ICD10: 02 K74.69 Signed out by: 02 Elena Traore MD, Pathologist NPI- [id number] Performed by: 01 Hanane Urbina, Briquette Molder ([facility]) Gross description: 01 20ML, CLEAR YELLOW, 1 TP 1 CB /LCS 08/20/2019 1131 Local FLAG LEGEND: L-Low Normal,H-High Normal,LL-Alert Low,HH-Alert High <-Panic Low,>-Panic High,A-Abnormal,AA-Critical Abnormal Performed at: [address] [place] [address] Spencer Domínguez MD, [address] [address] Elena Traore MD, Specimen Comment: A courtesy copy of this report has been sent to [phone], [phone] Specimen Comment: [phone] Specimen Comment: Report sent to Specimen Comment: A duplicate report has been generated due to demographic updates. Performed at: [address], [place], [place] [id number] [address] [address] PATHOLOGY RPT PROCEDURE Name: CHESTER CARLOS Room #: 249-P ADM IN M.R.#: [id number] Admission: 08/14/19 Date of : 66 Discharge: Report #: [id number] Path Case #: [id number] MD Spencer Domínguez MD Phone: [phone]
--- NOTE | 2019-08-22 16:29 | NUR ---
Pt remains in ICU on a vent with pressure support. First Aid Nurse spoke with pt's dtr Joselynherminio Tao to help with pt's cm assessment. She confirmed that the pt lives independently in an apt. Joselyn and her twin sister live next door in the same bldg/complex, so they see the pt daily. She indicates that the pt has a life long hx of ethol abuse and anxiety about hospitals/doctors;which is why she put off coming to the ER. She indicates her parents have been seperated for 16 years. The pt has two sons as well (total of 4 kids) and all of the family are involved and supportive. Joselyn is updating her siblings, the pt's mother (who is in a senior living) and her ex spouse daily. She reports her mother recently lost her job as a teacher a couple months ago. She is not sure if the pt's ins plan is through the school district or an individual plan. She will check her mail to see if she has rec'd any cobra information. She is aware that our hospital is OON with the pt's ins plan and indicates that the pt has been to [facility] before. [facility] may be a good option for transfer once she is off the vent and can transfer out of ICU. Emotional support provided. Pt's children are struggling with not being able to visit her d/t current Covid restrictions. The pt has never been in ethol rehab but may have participated in AA at one time. Joselyn indicates that the pt had ended a toxic relationship a while back and was trying to decrease her usage. Cm role introduced and support provided. She is not aware of any DPOA or Adv Directive document. Will follow.
[2019-08-23] VITALS (35 sets, daily range): BP systolic 82–111; BP diastolic 45–65
[2019-08-23 05:34] LABS: HEMATOCRIT 21.7 % (37.0-47.0); HEMOGLOBIN 7.2 gm/dL (12.0-15.0); MCH 32.7 pg (26.0-34.0); MCHC 33.3 g/dL (28.0-37.0); MCV 98.4 fL (80.0-100.0); RBC 2.21 mil/uL (4.20-5.00); RDW 21.7 % (10.5-14.5); WBC 12.6 thou/uL (4.0-11.0)
--- NOTE | 2019-08-23 05:41 | NUR ---
ASSUMED CARE OF PATIENT AT 1900. VSS, AFEBRILE. DENIES PAIN, SOA. O2 TITRATED THROUGH THE NIGHT. ATTEMPTED TO TITRATE LEVO GTT DOWN, UNABLE TO SUSTAIN MAP GREATER THAN 60. FAMILY CALLED, DAUGHTER SUZANNA SPOKE WITH PATIENT ON PHONE. PROGRESSING SLOWLY TOWARDS POC GOALS.
[2019-08-23 06:39] LABS: ALBUMIN 2.1 g/dL (3.4-5.0); CALCIUM 8.2 mg/dL (8.5-10.1); POTASSIUM 3.6 mmol/L (3.5-5.1); TOTAL PROTEIN 5.9 g/dL (6.4-8.2)
[2019-08-23 06:57] LABS: TOTAL BILIRUBIN 18.1 mg/dL (<0.1-1.0)
--- NOTE | 2019-08-23 10:17 | NUR ---
PATIENT COMPLETED SPEECH SWALLOW EVALUATION. PO MEDS STARTED. LEVOPHED BEING MONITORED AND TITRATED APPROPRIATE. PATIENT UP WITH MAX 2 PERSON ASSIST USING WALKER, GAIT BELT AND OXYGEN. PATIENT ABLE TO TOLERATE UP TO BEDSIDE COMMODE FOR BOWEL MOVEMENT AND COMPLETE BATH OUT OF BED FOR APPROX 35-40MIN. HE REMAINS SECURED AND PATENT. PATIENT UP IN BED AT THIS TIME, ATTEMPTS TO ASSIST WITH TURNING SELF. PATIENT WEAKENED AND REQUIRES MUCH SUPPORT BUT TOLERATES ACTIVITY WELL. O2 SATS REMAINED GREATER THAN 91% ON 1L NC THROUGHOUT ACTIVITIES AND WHEN AT REST. FALL PRECAUTIONS IN PLACE. PATIENT ANSWERS ORIENTATION QUESTIONS WELL BUT IS FORGETFUL. PATIENT STATES OFTEN, " I'M STILL TRYING TO GET MY BEARINGS. THINGS ARE STILL SOMETIMES CONFUSING." PATIENT REMAINS ORIENTED DURING THESE TIMES.
--- NOTE | 2019-08-23 10:45 | NUR ---
PT EXTUBATED, CM SPOKE WITH LORIE AT [facility], REFERRAL SENT FOR TRANSFER, LORIE WILL CALL BACK ONCE THEY HAVE MADE A DECISION. # [phone] FAX # [phone]
[2019-08-23] MEDS ORDERED: IPRAT-ALBUT 0.5-3 ML INH (16:24)
[2019-08-23] MEDS ORDERED: Protonix 40 MG VIAL IV PUSH (16:24)
[2019-08-23] MEDS ORDERED: MIDODRINE HCL 55 M1 PO (16:24)
[2019-08-23] MEDS ORDERED: PULMICORT0.5 MG/21 INH (16:25)
[2019-08-23] MEDS ORDERED: NYAMYC15 GM TOP (16:25)
[2019-08-23] MEDS ORDERED: ZOSYN 3.3753.375 GM IV (16:26)
[2019-08-23] MEDS ORDERED: LEVOPHED BI1 MG/1 M1 IV (16:28)
== END 2019-08-23 17:52 | disposition short-term general hospital (02) | DRG 853 ==
LOC: ER 14:06 → EROBS 17:26 → ICU 17:26
PROVIDERS: Emergency Medicine; Hospitalist; Internal Medicine Pulmonary Disease; Nurse Practitioner; Nurse Practitioner Family; Pediatrics; Specialist; ADMIT Internal Medicine
PROC: 30233M1 Transfusion of Nonautologous Plasma Cryoprecipitate into Peripheral Vein, Percutaneous Approach (ICD-10-PCS; principal; 2019-08-14)
PROC: 5A1955Z Respiratory Ventilation, Greater than 96 Consecutive Hours (ICD-10-PCS; principal; 2019-08-14)
PROC: 30233N1 Transfusion of Nonautologous Red Blood Cells into Peripheral Vein, Percutaneous Approach (ICD-10-PCS; principal; 2019-08-14)
PROC: 0BH17EZ Insertion of Endotracheal Airway into Trachea, Via Natural or Artificial Opening (ICD-10-PCS; principal; 2019-08-14)
PROC: 0D968ZZ Drainage of Stomach, Via Natural or Artificial Opening Endoscopic (ICD-10-PCS; principal; 2019-08-14)
PROC: 0W3P8ZZ Control Bleeding in Gastrointestinal Tract, Via Natural or Artificial Opening Endoscopic (ICD-10-PCS; principal; 2019-08-14)
PROC: 0D938ZZ Drainage of Lower Esophagus, Via Natural or Artificial Opening Endoscopic (ICD-10-PCS; principal; 2019-08-14)
PROC: 0W9G3ZZ Drainage of Peritoneal Cavity, Percutaneous Approach (ICD-10-PCS; 2019-08-17)
DX: A41.9 Sepsis, unspecified organism (principal); R57.8 Other shock; E43 Unspecified severe protein-calorie malnutrition; K22.11 Ulcer of esophagus with bleeding; J96.01 Acute respiratory failure with hypoxia; N17.0 Acute kidney failure with tubular necrosis; G92 Toxic encephalopathy; K76.7 Hepatorenal syndrome; K76.6 Portal hypertension; E87.2 Acidosis; E87.1 Hypo-osmolality and hyponatremia; I85.10 Secondary esophageal varices without bleeding; D62 Acute posthemorrhagic anemia; D68.4 Acquired coagulation factor deficiency; K83.09 Other cholangitis; J98.11 Atelectasis; F17.210 Nicotine dependence, cigarettes, uncomplicated; D69.6 Thrombocytopenia, unspecified; K70.31 Alcoholic cirrhosis of liver with ascites; E80.6 Other disorders of bilirubin metabolism; Z68.34 Body mass index [BMI] 34.0-34.9, adult; Y90.9 Presence of alcohol in blood, level not specified; K29.50 Unspecified chronic gastritis without bleeding; K70.11 Alcoholic hepatitis with ascites; K72.90 Hepatic failure, unspecified without coma; F10.20 Alcohol dependence, uncomplicated; E87.6 Hypokalemia; B19.20 Unspecified viral hepatitis C without hepatic coma; Z71.41 Alcohol abuse counseling and surveillance of alcoholic
CPT/HCPCS: 10078; 27000; 62110; 62900; 85076